=== PATIENT | male | born 1965 | race African-American/Black ===

== ENCOUNTER 2017-12-23 02:54 | Emergency (ER) | payer OTHER ==
[~2017-12-23] VITALS: Ht 170.2 cm; Wt 102.1 kg
[2017-12-23 03:03] VITALS: BP_SYST 212
[2017-12-23] MEDS ORDERED: cloNIDine HCL 0.1 MG TABLET PO ONE (03:15)
[2017-12-23 04:35] VITALS: BP_SYST 160
== END 2017-12-23 04:35 ==
LOC: SED 02:54
DX: F10.129 Alcohol abuse with intoxication, unspecified (principal); I10 Essential (primary) hypertension; Z88.0 Allergy status to penicillin; Z88.5 Allergy status to narcotic agent
CPT/HCPCS: 99283